=== PATIENT | male | born 1980 | race African-American/Black ===

== ENCOUNTER 2017-05-12 12:13 | Emergency (ER) | payer OTHER ==
[~2017-05-12] VITALS: Ht 188 cm; Wt 120.0 kg
[~2017-05-12 12:13] MED LIST: ADDE30XR PO; IBUP800T23 PO; PENI500T PO
[2017-05-12 12:21] VITALS: BP 135/69; PULSE 75; RESP 18; TEMP 98.7; O2SAT 100
[2017-05-12 15:14] VITALS: BP 163/76; PULSE 72; RESP 18; TEMP 98.3; O2SAT 100
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
[2017-05-12 15:29] VITALS: O2SAT 100
[2017-05-12 15:49] LABS: AUTOMATED NEUTROPHIL # 4.6 TH/MM3 (1.8-7.7); BASOPHIL % 0.4 % (0.0-2.0); EOSINOPHIL # 0.3 TH/MM3 (0-0.4); EOSINOPHIL % 3.4 % (0.0-4.0); HEMATOCRIT 36.7 % (39.0-51.0); HEMOGLOBIN 12.6 GM/DL (13.0-17.0); LYMPH % 25.4 % (9.0-44.0); MEAN CELL VOLUME 87.8 FL (80.0-100.0); MEAN CORPUSCULAR HEMOGLOBIN 30.2 PG (27.0-34.0); MEAN CORPUSCULAR HGB CONC 34.4 % (32.0-36.0); MEAN PLATELET VOLUME 8.1 FL (7.0-11.0); MONO % 11.4 % (0.0-8.0); MONOCYTE # 0.9 TH/MM3 (0-0.9); NEUT % 59.4 % (16.0-70.0); PLATELET COUNT 267 TH/MM3 (150-450); RED BLOOD COUNT 4.18 MIL/MM3 (4.50-5.90); RED CELL DISTRIBUTION WIDTH 12.9 % (11.6-17.2); WHITE BLOOD COUNT 7.7 TH/MM3 (4.0-11.0)
[2017-05-12 16:04] LABS: ALBUMIN 3.6 GM/DL (3.4-5.0); ALT (GPT) 44 U/L (12-78); AST (GOT) 39 U/L (15-37); BICARBONATE 31.1 MEQ/L (21.0-32.0); BLOOD UREA NITROGEN 9 MG/DL (7-18); CALCIUM 8.9 MG/DL (8.5-10.1); CHLORIDE 99 MEQ/L (98-107); CREATININE 0.79 MG/DL (0.60-1.30); GLOMERULAR FILTRATION RATE 135 ML/MIN (>89); GLUCOSE,RANDOM 97 MG/DL (74-106); SODIUM (NA) 137 MEQ/L (136-145)
[2017-05-12 16:06] LABS: ALKALINE PHOSPHATASE 76 U/L (45-117); TOTAL BILIRUBIN ADULT 0.5 MG/DL (0.2-1.0); TOTAL PROTEIN 8.2 GM/DL (6.4-8.2)
--- NOTE | 2017-05-12 16:18 | RADRPT ---
EXAM DATE/TIME: 05/12/2017 15:44 [facility] COMPARISON: No previous studies available for comparison. INDICATIONS : Left leg swelling. MEDICAL HISTORY : Neck pain. Anxiety. Substance use. SURGICAL HISTORY : Left ankle surgery. Plates and screws in right ankle. ENCOUNTER: Subsequent ACUITY: 1 week PAIN SCORE: 4/10 LOCATION: Left leg. TECHNIQUE: Venous ultrasound of the leg was performed from the inguinal ligament to the proximal calf. Real-camila e, color Doppler and spectral tracing, compression and augmentation techniques were used. FINDINGS: 3 cm left inguinal lymph node. There is normal compressibility of the deep venous system from the in guinal region to the proximal calf. No echogenic clot is seen in the lumen of the common femoral, fe moral, popliteal, and posterior tibial veins. There is a normal response of the venous system to pro ximal and distal augmentation and respiration. CONCLUSION: Negative for deep venous thrombosis. 3 cm inguinal lymph node Franky Vallecillo MD FACR on May 12, 2017 at 16:15 Board Certified Radiologist. This report was verified electronically.
[2017-05-12] MEDS ORDERED: BACT800T5 PO (16:27)
[2017-05-12] MEDS ORDERED: SULFAMETHOXAZOLE-TRIMETHOPRIM DS 800-160 MG TAB PO ONE (16:30)
[2017-05-12] MEDS ORDERED: POTASSIUM CHLORIDE 20 MEQ CONTROLLED RELEASE TAB PO ONE (16:30)
== END 2017-05-12 18:07 | disposition home or self-care (01) ==
LOC: NEPE 12:13
DX: L03.116 Cellulitis of left lower limb (principal); F41.9 Anxiety disorder, unspecified; F17.200 Nicotine dependence, unspecified, uncomplicated; Z79.899 Other long term (current) drug therapy
CPT/HCPCS: 80053; 83605; 85025; 85610; 85730; 87040; 93971; 99284

== ENCOUNTER 2017-07-15 13:42 | Emergency (ER) | payer OTHER ==
[~2017-07-15] VITALS: Ht 185.4 cm; Wt 125.0 kg
[~2017-07-15 13:42] MED LIST changes: +BACT800T5 PO
[2017-07-15 13:48] VITALS: BP 150/81; PULSE 98; RESP 16; TEMP 98.9; O2SAT 99
[2017-07-15] MEDS ORDERED: ADDE30TA PO (14:21)
[2017-07-15] MEDS ORDERED: BACT800T5 PO (14:32)
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
== END 2017-07-15 15:35 | disposition home or self-care (01) ==
LOC: NEPC 13:42
DX: L97.311 Non-pressure chronic ulcer of right ankle limited to breakdown of skin (principal); F90.9 Attention-deficit hyperactivity disorder, unspecified type; F41.9 Anxiety disorder, unspecified; G89.29 Other chronic pain; M54.9 Dorsalgia, unspecified; M54.2 Cervicalgia; F17.200 Nicotine dependence, unspecified, uncomplicated
CPT/HCPCS: 99283

== ENCOUNTER 2018-01-21 05:39 | Inpatient (IN) ==
[2018-01-21] MEDS ORDERED: Metoprolol Tartrate 25 MG Tablet PO ONE (06:15)
[2018-01-21] MEDS ORDERED: Chlorhexidine 4% Topical 120 APPLIC/120 ML Bottle TOPICAL SCH (06:15)
[2018-01-21] MEDS ORDERED: Sodium Chlor 0.9% Inj 500 ML IV.CONT ONE (06:15)
[2018-01-21] MEDS ORDERED: Chlorhexidine Gluconate 2% 1 Pack (2 Cloths) TOPICAL ONE (06:15)
[2018-01-21] MEDS ORDERED: ceFAZolin 1 GM Premix Inj 1 GM/50 ML FROZ.PIGGY IV.SIG ONE (06:53)
[2018-01-21] MEDS ORDERED: Ketamine Inj 50 MG/5 ML Syringe IV.PUSH ONE (07:27)
[2018-01-21] MEDS ORDERED: fentaNYL Citrate Inj 250 MCG/5 ML Ampul ONE (07:27)
[2018-01-21] MEDS ORDERED: Post-op Orders (for Pharmacy) OTHER STA (10:21)
[2018-01-21] MEDS ORDERED: Morphine Inj 4 MG/ML Vial IV.PUSH PRN (10:21)
--- NOTE | 2018-01-21 10:29 | P.OP ---
- Preoperative Diagnosis (1) Chronic osteomyelitis of right tibia (2) Painful orthopaedic hardware Date of procedure: 01/21/18 Procedure: Complex removal of deep hardware right tibia, irrigation and debridement right tibia osteomyelitis Anesthesia: GETA Surgeon: Bill Piedra MD Laborer Syrup Machine: Ford Birmingham PA-C The surgical procedure was assisted by my physician bus assistant. My P.A. presence was necessary throughout this case for the manipulation and positioning of the surgical extremity. My P.A. was assisting me throughout the duration of this procedure. The skill set of a physician bus assistant was medically necessary to complete this procedure. During the surgical case the infrastructure technician was working at the back table and the physician bus assistant was directly assisting me. Operation and Findings: Chan is a 37-year-old male who had a complex injury to his right distal tibia and fibula treated with open reduction internal fixation many years ago. He has had a chronic wound with purulent drainage. He is failed wound care and antibiotics. Informed consent was confirmed. Operative site was marked. Has brought the operating room. He was given IV sedation and general anesthesia. Timeout procedure was performed. Antibiotics were held until cultures were obtained. Right leg was prepped with alcohol followed by Hibiclens and draped in usual sterile fashion. Procedure began with removal of deep hardware. A 5 inch incision was made through previous scar. A portion of the open wound was excised. The hardware was exposed. There was dense scar tissue around this screws and plate. The medial plate was removed first. Each of the screws was localized. Appropriate screwdriver was used to loosen and remove screws. An osteotome was used to elevate the plate. The medial plate was now removed. Next the small anterior plate was removed. This plate was completely covered in bone. Osteotomes were used to remove extra bone around the plate. The plate was exposed. The screws were now removed. 3 of the screws were removed with appropriate screwdriver. 3 of the screw heads were stripped. At this point a TPS bur was used to cut away the plate to allow for better exposure of the screws. Using appropriate screw removal instruments the remaining 3 screws were removed. The distal centimeter of 1 of the screws broke off deep in the tibia. I was unable to retrieve this screw fragment. Next attention was turned to debridement of the tibia. There appeared to be a soft area of bone along the medial tibia directly underneath the open wound. Curettes and rongeurs were used to debride this bone. Cultures were obtained from this region. An excisional debridement was performed. After excision of all infected bone the wound was thoroughly irrigated with pulsatile lavage. At this point attention was turned to closure. Subcutaneous tissue was closed with 3-0 PDS and skin was closed with 3-0 nylon. Sterile dressings were applied. Patient was awakened and transferred to recovery room in stable condition.
[2018-01-21] MEDS ORDERED: *HYDROmorphone PF Inj 1 MG/ML Ampul PERIprocedural Use ONLY ONE ×2 (10:45→10:52)
[2018-01-21] MEDS ORDERED: Vancomycin Inj 1 GM/200 ML PIGGYBACK IV.SIG SCH (11:00)
[2018-01-21] MEDS ORDERED: *morphine SULFATE 10 MG/ML PERIprocedure ONLY ONE (11:05)
[2018-01-21] MEDS ORDERED: diphenhydrAMINE HCl 50 MG/ML VIAL IV.PUSH ONE (11:52)
[2018-01-21] MEDS ORDERED: Piperacil/Tazo 3.375 GM Premix 50 ML IV.SIG SCH (12:00)
[2018-01-21] MEDS ORDERED: HYDROmorphone PF Inj 1 MG/ML Ampul IV.PUSH ONE (13:00)
--- NOTE | 2018-01-21 14:46 | XR ---
EXAM DATE: 01/21/2018 2:36 PM EST AGE/SEX: 37 years / Male INDICATIONS: Right ankle hardware removal. CLINICAL DATA: This is the patient's initial encounter. Patient reports that signs and symptoms have been present for 1 day and indicates a pain score of Nonresponsive. MEDICAL/SURGICAL HISTORY: Non-responsive. Non-responsive. COMPARISON: [facility] [place], ANKLE RIGHT COMPLETE ([id number]), 05/02/2011. . FINDINGS: 4 images from the OR have been submitted. The surgical hardware seen at the distal tibia has largely been removed. On the final image, there is a small area of metallic density seen at the inferior aspe ct of the tibia paralleling the articular surface. There are tiny metallic fragments seen in the dist al tibia. There is lucency seen at the distal medial aspect of the tibia. There is a single screw anastacia t remains in the distal fibula. The ankle is normally aligned. CONCLUSION: Removal of nearly all the distal tibial hardware. Only tiny fragments and one small linear fragment r julianna. Electronically signed by: Grupo Brock MD 01/21/2018 2:44 PM EST
[2018-01-21] MEDS: Senna/Docusate Sodium 8.6/50 MG Tablet PO SCH (21:14)
[2018-01-21] MEDS: Vancomycin Inj 1,000 MG in Sodium Chlor 0.9% Inj 250 ML IV.SIG SCH (21:14)
--- NOTE | 2018-01-22 07:09 | P.PNOP ---
Subjective Interval history: POD 1 s/p I&D with RAMON right ankle doing well. reports pain but controlled. states has been out of bed to bathroom already Physical Exam Vital signs: Vital Signs 01/21/18 07:30 01/21/18 10:39 01/21/18 10:45 Temperature 98.5 F 98.1 F Pulse Rate 82 84 93 H Respiratory Rate 20 20 18 Blood Pressure 148/96 H 168/90 H 167/89 H Pulse Oximetry 99 100 100 01/21/18 11:00 01/21/18 11:15 01/21/18 11:30 Temperature Pulse Rate 87 85 85 Respiratory Rate 19 17 18 Blood Pressure 132/68 117/88 129/72 Pulse Oximetry 98 98 98 01/21/18 12:00 01/21/18 12:30 01/21/18 13:00 Temperature Pulse Rate 70 74 85 Respiratory Rate 17 15 15 Blood Pressure 139/78 128/69 137/70 Pulse Oximetry 98 94 L 98 01/21/18 14:00 01/21/18 15:00 01/21/18 15:15 Temperature 98.0 F Pulse Rate 72 76 73 Respiratory Rate 15 15 17 Blood Pressure 134/72 124/60 117/60 Pulse Oximetry 98 98 98 01/21/18 16:00 01/21/18 20:00 01/22/18 00:00 Temperature 98.2 F 97.9 F 97.4 F L Pulse Rate 89 81 73 Respiratory Rate 17 18 19 Blood Pressure 124/72 129/63 119/62 Pulse Oximetry 98 96 100 01/22/18 04:00 Temperature 97.3 F L Pulse Rate 76 Respiratory Rate 18 Blood Pressure 133/72 Pulse Oximetry 100 Intake & Output 01/21/18 01/22/18 01/22/18 18:59 06:59 18:59 Intake Total 800 / 800 1050 / 1050 Output Total 800 / 800 Balance 0 / 0 1050 / 1050 Weight 136.7 kg Intake: IV 50 / 50 250 / 250 Vancomycin Inj 1,000 MG In NS 250 / 250 Inj 250 ML @ 250 mls/hr IV.SIG Q12H [facility] Rx#:[id number] Ancef 1 GM Premix Inj 1 gm In 50 / 50 50 ml @ 0 mls/hr IV.SIG .STK- [facility] Rx#:[id number] Oral 800 / 800 Anesthesia Amount 750 / 750 Output: Blood Draw 100 / 100 Urine 700 / 700 Other: # Voids 2 Weight On Admission 132.1 kg Narrative: RLE: moderate bloody drainage medially. nvi Results - Labs Microbiology 01/21/18 09:45 Wound - Other Gram Stain - Final 01/21/18 09:45 Tissue - Other Gram Stain - Final - Imaging Impressions Ankle X-Ray 01/21/18 00:00 CONCLUSION: Removal of nearly all the distal tibial hardware. Only tiny fragments and one small linear fragment remain. Assessment and Plan - Assessment and Plan 1) Right Ankle removal of HW - POD 1 -cultures neg so far. -monitor cultures -infectious Dz to tailor Abx -if positive, will require IV Abx -begin daily dressing changes today -WBAT -will plan for DC home once Abx arranged
[2018-01-22] MEDS: Vancomycin Inj 1,000 MG in Sodium Chlor 0.9% Inj 250 ML IV.SIG SCH (09:29)
[2018-01-22] MEDS: Senna/Docusate Sodium 8.6/50 MG Tablet PO SCH ×2 (09:29→22:04)
[2018-01-22] MEDS ORDERED: Methadone 10 MG Tablet PO SCH (15:00)
[2018-01-22] MEDS ORDERED: [UNRECOGNIZED DRUG - OTHER] NASAL SCH (18:00)
[2018-01-22] MEDS: Methadone 10 MG Tablet PO SCH (22:02)
[2018-01-22] MEDS: Amphetamine/Dextroamphetamine 30 MG Tablet PO SCH (22:02)
[2018-01-23 00:17] VITALS: O2SAT 100
--- NOTE | 2018-01-23 06:53 | P.DCO ---
- Physical Therapy Physical Therapy: Gait training - Nursing Dressing changes: Daily dressing change, Michael wrap, 4x4s, Xeroform - Certification Need for Home Health services: I have seen patient Chan Saleem on 01/23/18. My clinical findings support the need for the requested home health care services because: Need for Home Health Services: Limited mobility due to disease progression Homebound Certification: I certify that my clinical findings support that this patient is homebound because: Homebound Certification: Post-op weakness
--- NOTE | 2018-01-23 06:55 | P.PNOP ---
Subjective Interval history: Postop day #2 status post right ankle irrigation and debridement with removal of deep hardware. Pain controled. Physical Exam Vital signs: Vital Signs 01/22/18 08:00 01/22/18 12:00 01/22/18 16:00 Temperature 98.2 F 98.3 F 97.6 F Pulse Rate 69 87 80 Respiratory Rate 15 16 15 Blood Pressure 145/81 H 123/77 123/83 Pulse Oximetry 100 100 100 01/22/18 19:56 01/23/18 00:00 Temperature 97.7 F 97.6 F Pulse Rate 74 74 Respiratory Rate 21 20 Blood Pressure 125/77 120/70 Pulse Oximetry 99 100 Intake & Output 01/22/18 01/22/18 01/23/18 06:59 18:59 06:59 Intake Total 1050 / 1050 250 / 250 700 / 700 Balance 1050 / 1050 250 / 250 700 / 700 Weight 136.9 kg Intake: IV 250 / 250 250 / 250 Vancomycin Inj 1,000 MG In NS 250 / 250 250 / 250 Inj 250 ML @ 250 mls/hr IV.SIG Q12H [facility] Rx#:[id number] Oral 800 / 800 700 / 700 Other: # Voids 2 4 Date of Last Bowel Movement 01/21/18 Narrative: Chan is awake and alert. Examination of right leg reveals clean dressings in place. Minimal drainage. Intact sensation right foot. Results - Labs Microbiology 01/21/18 09:45 Wound - Other Gram Stain - Final 01/21/18 09:45 Wound - Other Wound Culture - Preliminary No growth in 24 hours 01/21/18 09:45 Tissue - Other Gram Stain - Final 01/21/18 09:45 Tissue - Other Wound Culture - Preliminary No growth in 24 hours 01/21/18 09:45 Wound - Other Acid Fast Bacilli Smear - Final No acid fast bacilli seen 01/21/18 09:45 Tissue - Other Acid Fast Bacilli Smear - Final No acid fast bacilli seen 01/21/18 09:45 Wound - Other Fungal Smear - Final No fungal elements seen 01/21/18 09:45 Tissue - Other Fungal Smear - Final No fungal elements seen Assessment and Plan - Assessment and Plan 1) Right Ankle removal of HW with irrigation and debridement of tibia- POD 2 -cultures no growth to date -monitor cultures -if positive positive today, will require IV Abx and need ID consult -If cultures negative, will discharge home today with oral antibiotics -daily dressing changes today -WBAT -will plan for DC home today if cultures negative
[2018-01-23] MEDS: Amphetamine/Dextroamphetamine 30 MG Tablet PO SCH (08:16)
[2018-01-23] MEDS: Methadone 10 MG Tablet PO SCH (08:16)
[2018-01-23] MEDS: Senna/Docusate Sodium 8.6/50 MG Tablet PO SCH (08:16)
[2018-01-23 12:51] VITALS: BP 129/59; PULSE 73; RESP 16; TEMP 98
--- NOTE | 2018-01-23 13:04 | P.DS ---
Date of admission: 01/21/18 10:30 Primary care physician: Andi Rucker MD Attending physician on discharge: Bill Piedra Anticipated date of discharge: 01/23/18 Brief History from admission: patient is previously known to Dr. Piedra for a right ankle open reduction and internal fixation. He returned back to the office setting with drainage and a wound over the right ankle. The decision was made to proceed forward with removal of hardware for concern of infection. DS: Diagnosis - Discharge Diagnosis (1) Chronic osteomyelitis of right tibia Status: Acute (2) Painful orthopaedic hardware Status: Acute DS: Medications - Discharge Medications Prescriptions: doxycycline hyclate 100 mg PO BID #60 tab hydrocodone-acetaminophen 1 tab PO Q4H PRN #40 tab PRN Reason: Acute Pain sulfamethoxazole-trimethoprim [Bactrim DS] 1 tab PO Q12H #60 tab DS: Summary Hospital Course: patient was admitted from an outpatient basis for irrigation and debridement and removal of hardware right tibia. He tolerated the procedure well. He was admitted to the seventh floor. Intraoperative cultures were monitored and found to have grown normal skin toan on the swab culture while the tissue culture was negative. Daily dressing changes were begun on postoperative day 1 due to drainage.on postop day 0 and postoperative day 1, he was ambulating with minimal assistance. His pain is well controlled. By postop day 2, he was hemodynamically stable, cultures were finalized, his pain was well controlled, and he was fit for discharge home. He will be discharged with oral Bactrim and doxycycline for 1 month duration. He will remain fully weightbearing. He will have daily dressing changes of the right ankle and we'll also keep it clean and dry. He will follow up with Dr. Piedra or his PA in 2 weeks - Time Spent with Patient Total time spent providing and/or coordinating discharge services: Less than 30 minutes - Quality: VTE Deep Vein Thrombosis/Pulmonary Embolism Present on Admission: No Exam Vital signs: Vital Signs 01/22/18 16:00 01/22/18 19:56 01/23/18 00:00 Temperature 97.6 F 97.7 F 97.6 F Pulse Rate 80 74 74 Respiratory Rate 15 21 20 Blood Pressure 123/83 125/77 120/70 Pulse Oximetry 100 99 100 01/23/18 12:00 Temperature 98.0 F Pulse Rate 73 Respiratory Rate 16 Blood Pressure 129/59 L Pulse Oximetry 100 Intake & Output 01/22/18 01/23/18 01/23/18 18:59 06:59 18:59 Intake Total 250 / 250 700 / 700 Balance 250 / 250 700 / 700 Weight 136.9 kg Intake: IV 250 / 250 Vancomycin Inj 1,000 MG In NS 250 / 250 Inj 250 ML @ 250 mls/hr IV.SIG Q12H VITALY Rx#:[id number] Oral 700 / 700 Other: # Voids 4 Date of Last Bowel Movement 01/21/18 Narrative: RLE: moderate bloody drainage medially. nvi Results Procedures completed during hospitalization: irrigation and debridement with removal of deep hardware right tibia Labs on day of discharge: Preliminary micro results at discharge 01/21/18 09:45 Wound Culture - Preliminary Tissue - Other No growth in 48 hours 01/21/18 09:45 Wound Culture - Preliminary Wound - Other Moderate growth normal skin toan No anaerobes isolated - Impressions ITS Impressions Ankle X-Ray 01/21/18 00:00 CONCLUSION: Removal of nearly all the distal tibial hardware. Only tiny fragments and one small linear fragment remain. Discharge Plan - Discharge Disposition Patient Disposition: /Home Health Service - Discharge Condition Condition: Good - Discharge Order Discharge Orders: Discharge Order (Routine); Ordered 01/23/18 Ordered By: Bill Piedra - Physicians Team Primary Care Provider: Andi Rucker Attending Provider: Bill Piedra Other Providers: Bill Piedra MD ; Linda Santos,Bennie - Rxs /Orders / Referrals /Forms Prescriptions: New doxycycline hyclate 100 mg Tablet 100 mg PO BID Qty: 60 RF: 0 hydrocodone-acetaminophen 7.5-325 mg Tablet 1 tab PO Q4H PRN (Reason: Acute Pain) Qty: 40 RF: 0 sulfamethoxazole-trimethoprim [Bactrim DS] 800-160 mg Tablet 1 tab PO Q12H Qty: 60 RF: 0 Continue dextroamphetamine-amphetamine [Adderall] 30 mg Tablet 30 mg PO BID methadone 10 mg Tablet 20 mg PO BID testosterone [Natesto] 5.5 mg/0.122 gram/actuation Gel In Metered-Dose Pump 1 pump INTRANASAL TID Referrals: Andi Rucker MD [Primary Care Provider] - See Instructions Doctors Danielle,Agency [Agency] - See Instructions Bill Piedra MD [Physician] - 02/04/18 1:00 pm (2 weeks)
== END 2018-01-23 13:41 | disposition home or self-care (01) ==
LOC: HSDC 05:39 → EDSTATUS 08:30 → HSDI 10:30 → N07 15:32
PROVIDERS: ADMIT Orthopaedic Surgery Orthopaedic Trauma; ATTEND Orthopaedic Surgery Orthopaedic Trauma
PROC: ORIFTIB (2018-01-21 08:32)